=== PATIENT | male | born 1955 | race Caucasian/White ===

== ENCOUNTER → 2021-03-22 | Outpatient (CLI) | payer MEDICARE ==
[2021-03-22 09:32] LABS: ALBUMIN 4.1 g/dL (3.5-5.0); BILIRUBIN,TOTAL 0.4 mg/dL (0.2-1.0); CREATININE 0.9 mg/dL (0.5-1.5); POTASSIUM 4.5 mmol/L (3.5-5.1); TOTAL PROTEIN, SERUM 7.8 g/dL (6.0-8.3)
== END | disposition home or self-care (01) ==
LOC: LAB 08:38
PROVIDERS: ATTEND Internal Medicine Critical Care Medicine
DX: I26.99 Other pulmonary embolism without acute cor pulmonale (principal)
CPT/HCPCS: 36415; 80053

== ENCOUNTER → 2021-03-23 | Outpatient (CLI) | payer MEDICARE ==
[~2021-03-23] MED LIST: IOHEXOL 350 MG/ML 100ML INFUS..BTL IV ONE
== END | disposition home or self-care (01) ==
LOC: RAH 08:24 → EDUNIT# 09:00
PROVIDERS: ATTEND Internal Medicine Critical Care Medicine
DX: I08.1 Rheumatic disorders of both mitral and tricuspid valves (principal); R06.09 Other forms of dyspnea; E11.9 Type 2 diabetes mellitus without complications; E78.5 Hyperlipidemia, unspecified
CPT/HCPCS: 71275; 93306; Q9967

== ENCOUNTER 2021-04-10 05:56 | Day surgery (SDC) | payer MEDICARE ==
[2021-04-06 14:50] VITALS: BP 123/56
[2021-04-06 15:05] LABS: BASOPHILS % (AUTO) 0.8 % (0.0-5.0); EOSINOPHILS % (AUTO) 2.2 % (0.0-8.0); LYMPHOCYTES % (AUTO) 36.5 % (21.0-51.0); MEAN CORPUSCULAR HEMOGLOBIN 29.8 pg (27.0-33.0); MEAN CORPUSCULAR HGB CONC 34.4 g/dL (32.0-36.0); MEAN CORPUSCULAR VOLUME 86.7 fL (79-99); NEUTROPHILS % (AUTO) 51.3 % (40.0-77.0); PLATELET COUNT (AUTO) 275 K/uL (130-400); RED BLOOD CELL COUNT(AUTO) 4.73 MIL/uL (4.50-6.20); RED CELL DISTRIBUTION WIDTH 12.7 % (11.0-15.5); WHITE BLOOD COUNT (AUTO) 9.3 K/uL (4.8-10.8)
[2021-04-06 15:21] LABS: POTASSIUM 4.4 mmol/L (3.5-5.1)
[2021-04-06 15:25] LABS: INR 1.02 (0.85-1.15); PROTHROMBIN TIME 11.1 SEC (9.6-11.6)
[2021-04-06 15:26] LABS: APPEARANCE,URINE Clear (CLEAR); BILIRUBIN,URINE Negative (NEGATIVE); COLOR,URINE Yellow (YELLOW); GLUCOSE, URINE (UA) 250 mg/dL (NEGATIVE); KETONES,URINE Negative (NEGATIVE); LEUKOCYTE ESTERASE ,URINE Negative (NEGATIVE); NITRATE,URINE Negative (NEGATIVE); OCCULT BLOOD,URINE Negative (NEGATIVE); PROTEIN,URINE Negative (NEGATIVE)
[2021-04-06 16:05] LABS: BACTERIA,URINE None Seen /HPF (None Seen); RBC,URINE None Seen /HPF (0-1); SQUAMOUS EPITHELIAL CELL,UR None Seen /HPF (0-2); WBC,URINE 0-1 /HPF (0-1)
[2021-04-10] VITALS (8 sets, daily range): BP systolic 105–129; BP diastolic 62–93
[~2021-04-10] VITALS: Ht 190.5 cm; Wt 107.0 kg
[~2021-04-10 05:56] MED LIST changes: +ASPI-1012 PO; +ESOM40CA PO; -IOHEXOL 350 MG/ML 100ML INFUS..BTL IV ONE; +ISOS30TA92 PO; +METF-526 PO; +METO-408 PO; +ROSU10TA28 PO; +TAMS-1 PO; +UBID100C10 PO
[2021-04-10] MEDS ORDERED: 0.9%NACL 1000ML 1,000 ML IV ONE (06:17)
[2021-04-10] MEDS ORDERED: LIDOCAINE HCL 400MG/20ML VIAL ONE (07:13)
[2021-04-10] MEDS ORDERED: IOHEXOL 350 MG/ML 100ML INFUS..BTL IV ONE (07:13)
[2021-04-10] MEDS ORDERED: IOHEXOL-350 50ML VIAL IV ONE (07:13)
[2021-04-10] MEDS ORDERED: NITROGLYCERIN 50MG VIAL ONE (07:13)
[2021-04-10] MEDS ORDERED: HEPARIN 10,000 UNIT/10ML (1,000 UNIT/ML) VIAL ONE (07:58)
[2021-04-10] MEDS ORDERED: NICARDIPINE 25MG INJ IV ONE (07:58)
[2021-04-10] MEDS ORDERED: FENTANYL CITRATE PF 50 MCG/1 ML 2ML VIAL ONE (08:00)
[2021-04-10] MEDS ORDERED: 0.9%NACL 1000ML 1,000 ML IV SCH (08:00)
[2021-04-10] MEDS ORDERED: MIDAZOLAM HCL 1 MG/ML 2ML VIAL ONE (08:00)
[2021-04-10 12:08] LABS: HEMATOCRIT 41.8 % (42-54); MEAN CORPUSCULAR HEMOGLOBIN 29.5 pg (27.0-33.0); MEAN CORPUSCULAR VOLUME 86.9 fL (79-99); RED BLOOD CELL COUNT(AUTO) 4.81 MIL/uL (4.50-6.20); RED CELL DISTRIBUTION WIDTH 12.9 % (11.0-15.5); WHITE BLOOD COUNT (AUTO) 8.2 K/uL (4.8-10.8)
[2021-04-10 12:13] LABS: INR 1.11 (0.85-1.15)
[2021-04-10 12:15] LABS: PARTIAL THROMBOPLASTIN TIME 27.5 SEC (26.3-35.5)
[2021-04-10 12:21] LABS: ALBUMIN 3.4 g/dL (3.5-5.0); BILIRUBIN,TOTAL 0.4 mg/dL (0.2-1.0); CREATININE 0.7 mg/dL (0.5-1.5); POTASSIUM 3.5 mmol/L (3.5-5.1); TOTAL PROTEIN, SERUM 6.6 g/dL (6.0-8.3)
== END 2021-04-10 12:03 | disposition home or self-care (01) ==
LOC: DAH 05:56
PROVIDERS: ATTEND Internal Medicine Cardiovascular Disease
DX: I25.118 Atherosclerotic heart disease of native coronary artery with other forms of angina pectoris (principal); I25.82 Chronic total occlusion of coronary artery; I42.9 Cardiomyopathy, unspecified; E78.5 Hyperlipidemia, unspecified; K21.9 Gastro-esophageal reflux disease without esophagitis; E11.9 Type 2 diabetes mellitus without complications; F17.210 Nicotine dependence, cigarettes, uncomplicated; Z83.3 Family history of diabetes mellitus; Z82.49 Family history of ischemic heart disease and other diseases of the circulatory system; Z79.82 Long term (current) use of aspirin; Z79.01 Long term (current) use of anticoagulants; Z79.899 Other long term (current) drug therapy; Z98.890 Other specified postprocedural states; Z86.16 Personal history of COVID-19; Z79.84 Long term (current) use of oral hypoglycemic drugs
CPT/HCPCS: 36415 ×2; 71045; 80048; 80053; 80061; 81001; 83036; 83880; 85025; 85027; 85610 ×2; 85730 ×2; 86850; 86900; 86901; 93005; 93458; 93880; A4215; A4216; A4221; A4222; A4223 ×3; A4606; A4663; C1769; C1894 ×3; J1644 ×2; J2250; J3010; J3490 ×3; J7030 ×2; Q9965; Q9967; 99156; 99157

== ENCOUNTER → 2021-04-13 | Outpatient (CLI) | payer MEDICARE ==
[~2021-04-13] VITALS: Ht 190.5 cm; Wt 106.0 kg
[~2021-04-13] MED LIST changes: +AMINOCAPROIC ACID 5,000MG VIAL 15,000 MG in 0.9% NACL 500ML IV.SOLN 420 ML IV PRN; +EPINEPHRINE PF 1MG AMP 10 MG in 0.9% NACL 250ML 240 ML IV PRN; +NOREPINEPHRINE BITARTRATE 8 MG in DEXTROSE 5%-WATER 250 ML IV PRN
[2021-04-13 09:21] LABS: ABG BASE EXCESS -4.6 mmol/L (-2.0-3.0); ABG HCO3 19.2 mmol/L (21.0-28.0); ABG OXYGEN SATURATION 95.9 % (95.0-99.0); ABG PCO2 32 mmHg (35-48)
[2021-04-13 09:33] VITALS: BP 139/71
== END | disposition home or self-care (01) ==
LOC: EDSTATUS 08:00 → DAH 10:00
PROVIDERS: ATTEND Thoracic Surgery (Cardiothoracic Vascular Surgery)
DX: Z01.812 Encounter for preprocedural laboratory examination (principal); I25.10 Atherosclerotic heart disease of native coronary artery without angina pectoris; Z20.822 Contact with and (suspected) exposure to COVID-19
CPT/HCPCS: 36415; 36600; 82435; 82803; 82947; 83605; 84132; 84295; 85018; 86850; 86900; 86901; 86923; 87635; A6260

== ENCOUNTER 2021-04-14 08:00 | Inpatient (IN) | payer MEDICARE ==
[~2021-04-14] VITALS: Ht 190.5 cm; Wt 105.4 kg
[~2021-04-14 08:00] MED LIST changes: -AMINOCAPROIC ACID 5,000MG VIAL 15,000 MG in 0.9% NACL 500ML IV.SOLN 420 ML IV PRN; -EPINEPHRINE PF 1MG AMP 10 MG in 0.9% NACL 250ML 240 ML IV PRN; -NOREPINEPHRINE BITARTRATE 8 MG in DEXTROSE 5%-WATER 250 ML IV PRN
[2021-04-21 10:26] LABS: BASOPHILS % (AUTO) 0.5 % (0.0-5.0); EOSINOPHILS % (AUTO) 2.6 % (0.0-8.0); HEMATOCRIT 42.6 % (42-54); LYMPHOCYTES % (AUTO) 29.6 % (21.0-51.0); MEAN CORPUSCULAR HEMOGLOBIN 28.9 pg (27.0-33.0); MEAN CORPUSCULAR HGB CONC 33.3 g/dL (32.0-36.0); MEAN CORPUSCULAR VOLUME 86.8 fL (79-99); MONOCYTES % (AUTO) 7.7 % (3.0-13.0); NEUTROPHILS % (AUTO) 59.1 % (40.0-77.0); PLATELET COUNT (AUTO) 273 K/uL (130-400); RED BLOOD CELL COUNT(AUTO) 4.91 MIL/uL (4.50-6.20); RED CELL DISTRIBUTION WIDTH 12.6 % (11.0-15.5); WHITE BLOOD COUNT (AUTO) 9.8 K/uL (4.8-10.8)
[2021-04-21 10:29] LABS: CREATININE 0.9 mg/dL (0.5-1.5); POTASSIUM 4.4 mmol/L (3.5-5.1)
[2021-04-21 10:37] LABS: INR 1.01 (0.85-1.15)
[2021-04-21 10:38] LABS: PARTIAL THROMBOPLASTIN TIME 27.1 SEC (26.3-35.5)
[2021-04-21 16:13] VITALS: BP 140/67
[2021-04-24] VITALS (47 sets, daily range): BP systolic 107–243; BP diastolic 59–130
[2021-04-24] MEDS ORDERED: 0.9%NACL 1000ML 1,000 ML IV ONE (07:02)
[2021-04-24] MEDS: CEFAZOLIN SODIUM 1 GM VIAL ONE ×2 (07:17→11:15)
[2021-04-24] MEDS ORDERED: EPINEPHRINE PF 1MG AMP 10 MG in 0.9% NACL 250ML 240 ML IV PRN ×5 (07:30→14:30)
[2021-04-24] MEDS ORDERED: AMINOCAPROIC ACID 5,000MG VIAL 15,000 MG in 0.9% NACL 500ML IV.SOLN 420 ML IV PRN (07:30)
[2021-04-24] MEDS ORDERED: NOREPINEPHRINE BITARTRATE 8 MG in 0.9% NACL 250ML 250 ML IV PRN ×2 (07:30→14:30)
[2021-04-24] MEDS ORDERED: AMINOCAPROIC ACID 5,000MG VIAL ONE (08:56)
[2021-04-24] MEDS ORDERED: HEPARIN 10,000 UNIT/10ML (1,000 UNIT/ML) VIAL ONE ×2 (08:56→11:56)
[2021-04-24] MEDS ORDERED: LIDOCAINE PF 100MG/5ML (2%) SYRINGE 5ML ONE (08:56)
[2021-04-24] MEDS ORDERED: EPINEPHRINE PF 1MG AMP ONE (08:56)
[2021-04-24] MEDS ORDERED: PROTAMINE SULFATE 10 MG/ML 25ML VIAL IV ONE (08:56)
[2021-04-24] MEDS ORDERED: ESMOLOL HCL 10 MG/ML 10 ML VIAL ONE (08:56)
[2021-04-24] MEDS ORDERED: SODIUM BICARB 50MEQ 50ML VIAL 150 ML ONE (08:56)
[2021-04-24] MEDS ORDERED: NOREPINEPHRINE BITARTRATE 1 MG/1 ML ML IV ONE (08:56)
[2021-04-24] MEDS ORDERED: ROCURONIUM 10MG/1ML SYR 10 MG/ML ML ONE (08:57)
[2021-04-24] MEDS ORDERED: PROPOFOL 10 MG/ML 20ML VIAL IV ONE (08:57)
[2021-04-24] MEDS ORDERED: MIDAZOLAM HCL 1 MG/ML 2ML VIAL ONE (08:57)
[2021-04-24] MEDS ORDERED: FENTANYL CITRATE PF 50 MCG/1 ML 20ML VIAL IJ ONE (08:57)
[2021-04-24] MEDS ORDERED: KETAMINE 50MG/ML SYRINGE 50 MG/ML DISP.SYRIN IV ONE ×2 (09:02→12:51)
[2021-04-24] MEDS ORDERED: NITROGLYCERIN 50MG/D5W 250ML 1 BOT ONE (09:08)
[2021-04-24] MEDS ORDERED: OCTYL 2-CYANOACRYLATE 1 EACH TP ONE (11:52)
[2021-04-24] MEDS ORDERED: PAPAVERINE HCL 30 MG/ML 2ML VIAL ONE (11:52)
[2021-04-24] MEDS ORDERED: CEFAZOLIN SODIUM 1 GM VIAL ONE ×2 (11:52→17:42)
[2021-04-24 12:04] LABS: ABG BASE EXCESS -1.3 mmol/L (-2.0-3.0); ABG HCO3 22.3 mmol/L (21.0-28.0); ABG OXYGEN SATURATION 99.3 % (95.0-99.0); ABG PCO2 34 mmHg (35-48)
[2021-04-24 13:52] LABS: ABG BASE EXCESS -4.7 mmol/L (-2.0-3.0); ABG HCO3 20.1 mmol/L (21.0-28.0); ABG PCO2 36 mmHg (35-48)
[2021-04-24] MEDS ORDERED: NOREPINEPHRIN 4MG/NS 250ML 250 ML IV PRN (14:00)
[2021-04-24] MEDS ORDERED: GLUCAGON 1MG KIT 1 MG ML IM PRN (14:00)
[2021-04-24] MEDS ORDERED: 0.9%NACL 1000ML 1,000 ML IV SCH (14:00)
[2021-04-24] MEDS ORDERED: TRAMADOL HCL 50 MG TABLET PO PRN (14:00)
[2021-04-24] MEDS ORDERED: ALBUMIN (HUMAN) 5% 250 ML IV PRN (14:00)
[2021-04-24] MEDS ORDERED: POTASSIUM PHOS 15 mMOL+NS250ML 250 ML IV PRN (14:00)
[2021-04-24] MEDS ORDERED: MORPHINE 2 MG SYG IV PRN (14:00)
[2021-04-24] MEDS ORDERED: ONDANSETRON 4MG INJ IV PRN (14:00)
[2021-04-24] MEDS ORDERED: 0.9% NACL 500ML IV.SOLN 500 ML IV SCH (14:00)
[2021-04-24] MEDS ORDERED: ACETAMINOPHEN 650 MG SUPPOSITORY RC PRN (14:00)
[2021-04-24] MEDS ORDERED: PROPOFOL 1000 MG/100 ML 100 ML IV PRN (14:00)
[2021-04-24] MEDS ORDERED: 0.9%NACL 10ML VIAL IVP PRN (14:00)
[2021-04-24] MEDS ORDERED: AMINOCAPROIC ACID 5,000MG VIAL 15,000 MG in 0.9% NACL 250ML 250 ML IV SCH (14:00)
[2021-04-24] MEDS ORDERED: ACETAMINOPHEN 325 MG TAB PO PRN (14:00)
[2021-04-24] MEDS ORDERED: INSULIN REGULAR, HUMAN 3ML 100 UNIT in 0.9%NACL 100ML 99 ML IV SCH ×2 (14:00)
[2021-04-24] MEDS ORDERED: EPINEPHRINE PF 1MG AMP 10 MG in DEXTROSE 5%-WATER 250 ML IV PRN (14:00)
[2021-04-24] MEDS ORDERED: MAGNESIUM 2GM PREMIX 50ML 50 ML IV PRN (14:00)
[2021-04-24] MEDS ORDERED: DEXTROSE 50%-WATER 50 ML DISP.SYRIN IV PRN (14:00)
[2021-04-24 15:00] LABS: ABG BASE EXCESS -6.8 mmol/L (-2.0-3.0); ABG HCO3 19.3 mmol/L (21.0-28.0); ABG OXYGEN SATURATION 95.6 % (95.0-99.0); ABG PCO2 40 mmHg (35-48)
[2021-04-24 15:11] LABS: HEMATOCRIT 40.5 % (42-54); MEAN CORPUSCULAR HEMOGLOBIN 29.1 pg (27.0-33.0); MEAN CORPUSCULAR HGB CONC 33.3 g/dL (32.0-36.0); MEAN CORPUSCULAR VOLUME 87.3 fL (79-99); RED BLOOD CELL COUNT(AUTO) 4.64 MIL/uL (4.50-6.20); RED CELL DISTRIBUTION WIDTH 12.7 % (11.0-15.5); WHITE BLOOD COUNT (AUTO) 29.3 K/uL (4.8-10.8)
[2021-04-24] MEDS: SODIUM BICARB 50MEQ 50ML VIAL IV PRN ×3 (15:13→20:32)
[2021-04-24] MEDS: MORPHINE 2 MG SYG IV PRN ×2 (15:13→16:17)
[2021-04-24 15:20] LABS: INR 1.12 (0.85-1.15); MAGNESIUM 1.5 mg/dL (1.80-2.40); PHOSPHORUS 4.5 mg/dL (2.5-4.9); POTASSIUM 3.4 mmol/L (3.5-5.1); PROTHROMBIN TIME 12.1 SEC (9.6-11.6)
[2021-04-24 15:21] LABS: PARTIAL THROMBOPLASTIN TIME 24.7 SEC (26.3-35.5)
[2021-04-24] MEDS: POTASSIUM CHLORIDE 20MEQ/100ML 100 ML IV PRN ×2 (15:53→16:46)
[2021-04-24] MEDS ORDERED: ASPIRIN 81MG CHEW TAB NG ONE (16:00)
[2021-04-24 16:11] LABS: ABG BASE EXCESS -3.6 mmol/L (-2.0-3.0); ABG HCO3 20.6 mmol/L (21.0-28.0); ABG OXYGEN SATURATION 97.1 % (95.0-99.0); ABG PCO2 35 mmHg (35-48)
[2021-04-24 17:14] LABS: ABG BASE EXCESS 0.6 mmol/L (-2.0-3.0); ABG HCO3 26.3 mmol/L (21.0-28.0); ABG OXYGEN SATURATION 95.8 % (95.0-99.0); ABG PCO2 46 mmHg (35-48)
[2021-04-24] MEDS: CALCIUM GLUC 1GM 1 GM in 0.9%NACL 50ML 50 ML IV PRN ×2 (17:23→18:45)
[2021-04-24] MEDS ORDERED: ASPIRIN 81MG CHEW TAB ONE (17:42)
[2021-04-24] MEDS: CEFAZOLIN SODIUM 1 GM VIAL IV SCH (17:44)
[2021-04-24] MEDS ORDERED: PANTOPRAZOLE 40 MG/VIAL IVP ONE (18:30)
[2021-04-24 18:47] LABS: MAGNESIUM 2.2 mg/dL (1.80-2.40); POTASSIUM 3.7 mmol/L (3.5-5.1)
[2021-04-24] MEDS: TRAMADOL HCL 50 MG TABLET PO PRN (19:29)
[2021-04-24 19:34] LABS: CHOLESTEROL 132 mg/dL (<200); HDL CHOLESTEROL 37 mg/dL (29-71); LDL DIRECT 78 mg/dL (0-99); TRIGLYCERIDES 105 mg/dL (30-200)
[2021-04-24] MEDS ORDERED: KETOROLAC 30MG VIAL (30MG/ML) ONE (19:55)
[2021-04-24 20:19] LABS: ABG HCO3 24.5 mmol/L (21.0-28.0); ABG OXYGEN SATURATION 95.7 % (95.0-99.0); ABG PCO2 44 mmHg (35-48)
[2021-04-24] MEDS ORDERED: KETOROLAC 30MG VIAL (30MG/ML) IV ONE (20:30)
[2021-04-24] MEDS: FAMOTIDINE 20MG VIAL IV SCH (20:32)
[2021-04-24] MEDS: Rosuvastatin Calcium 10 MG PO SCH (21:00)
[2021-04-24] MEDS ORDERED: FAMOTIDINE 20MG VIAL IV SCH (21:00)
[2021-04-24] MEDS: IPRATROPIUM 0.5 MG/2.5 ML INH IH SCH (23:34)
[2021-04-25] VITALS (27 sets, daily range): BP systolic 95–149; BP diastolic 43–81
[2021-04-25] MEDS: TRAMADOL HCL 50 MG TABLET PO PRN (02:04)
[2021-04-25] MEDS: CEFAZOLIN SODIUM 1 GM VIAL IV SCH ×2 (02:55→10:09)
[2021-04-25 04:35] LABS: BASOPHILS % (AUTO) 0.2 % (0.0-5.0); HEMATOCRIT 40.3 % (42-54); LYMPHOCYTES % (AUTO) 5.7 % (21.0-51.0); MEAN CORPUSCULAR HEMOGLOBIN 29.9 pg (27.0-33.0); MEAN CORPUSCULAR HGB CONC 34.2 g/dL (32.0-36.0); MEAN CORPUSCULAR VOLUME 87.4 fL (79-99); MONOCYTES % (AUTO) 9.6 % (3.0-13.0); NEUTROPHILS % (AUTO) 83.9 % (40.0-77.0); PLATELET COUNT (AUTO) 269 K/uL (130-400); RED BLOOD CELL COUNT(AUTO) 4.61 MIL/uL (4.50-6.20); WHITE BLOOD COUNT (AUTO) 19.9 K/uL (4.8-10.8)
[2021-04-25 04:50] LABS: INR 1.07 (0.85-1.15); PROTHROMBIN TIME 11.6 SEC (9.6-11.6)
[2021-04-25 04:52] LABS: CREATININE 0.8 mg/dL (0.5-1.5); MAGNESIUM 1.8 mg/dL (1.80-2.40); PARTIAL THROMBOPLASTIN TIME 26.5 SEC (26.3-35.5); PHOSPHORUS 4.2 mg/dL (2.5-4.9); POTASSIUM 3.9 mmol/L (3.5-5.1)
[2021-04-25] MEDS ORDERED: HYDROCODONE/ACETAMINOPHEN 5/325 MG TAB PO PRN ×2 (05:30→09:30)
[2021-04-25] MEDS ORDERED: MORPHINE 2 MG SYG IVP ONE (05:30)
[2021-04-25] MEDS: IPRATROPIUM 0.5 MG/2.5 ML INH IH SCH ×3 (06:40→20:39)
[2021-04-25 07:08] LABS: ABG BASE EXCESS -0.1 mmol/L (-2.0-3.0); ABG HCO3 23.5 mmol/L (21.0-28.0); ABG OXYGEN SATURATION 95.1 % (95.0-99.0); ABG PCO2 35 mmHg (35-48)
[2021-04-25] MEDS: FUROSEMIDE 20MG VIAL IV SCH ×2 (08:15→20:45)
[2021-04-25] MEDS: TAMSULOSIN HCL 0.4 MG CAP.ER.24H PO SCH (08:15)
[2021-04-25] MEDS: ASPIRIN 81 MG EC TAB PO SCH (08:15)
[2021-04-25] MEDS: FAMOTIDINE 20MG VIAL IV SCH ×2 (08:15→20:43)
[2021-04-25] MEDS ORDERED: PANTOPRAZOLE 40 MG TAB DR PO SCH (09:00)
[2021-04-25] MEDS ORDERED: ASCORBIC ACID 500 MG TAB PO SCH (09:00)
[2021-04-25] MEDS: HYDROCODONE/ACETAMINOPHEN 7.5/325 MG TAB PO PRN ×2 (16:57→23:25)
[2021-04-25] MEDS: Rosuvastatin Calcium 10 MG PO SCH (20:43)
[2021-04-26] VITALS (18 sets, daily range): BP systolic 95–168; BP diastolic 53–87
[2021-04-26] MEDS: IPRATROPIUM 0.5 MG/2.5 ML INH IH SCH ×4 (00:59→19:12)
[2021-04-26 04:46] LABS: HEMATOCRIT 38.2 % (42-54); MEAN CORPUSCULAR HEMOGLOBIN 28.7 pg (27.0-33.0); MEAN CORPUSCULAR HGB CONC 32.5 g/dL (32.0-36.0); MEAN CORPUSCULAR VOLUME 88.4 fL (79-99); RED BLOOD CELL COUNT(AUTO) 4.32 MIL/uL (4.50-6.20); RED CELL DISTRIBUTION WIDTH 13.2 % (11.0-15.5); WHITE BLOOD COUNT (AUTO) 17.8 K/uL (4.8-10.8)
[2021-04-26 04:54] LABS: CREATININE 0.8 mg/dL (0.5-1.5); POTASSIUM 3.4 mmol/L (3.5-5.1)
[2021-04-26] MEDS: POTASSIUM CHLORIDE 20MEQ/100ML 100 ML IV PRN (05:05)
[2021-04-26] MEDS: HYDROCODONE/ACETAMINOPHEN 7.5/325 MG TAB PO PRN (05:14)
[2021-04-26] MEDS ORDERED: POTASSIUM CHLORIDE 10% ELIXIR 20 MEQ/15 ML UDCUP PO PRN (07:30)
[2021-04-26] MEDS: TAMSULOSIN HCL 0.4 MG CAP.ER.24H PO SCH (08:16)
[2021-04-26] MEDS: ASPIRIN 81 MG EC TAB PO SCH (08:17)
[2021-04-26] MEDS: FUROSEMIDE 20 MG TABLET PO SCH ×2 (08:17→16:17)
[2021-04-26] MEDS: ASCORBIC ACID 500 MG TAB PO SCH (08:17)
[2021-04-26] MEDS: KCL 20 MEQ ERTAB PO PRN ×2 (08:18→10:02)
[2021-04-26] MEDS: FAMOTIDINE 20MG VIAL IV SCH (08:19)
[2021-04-26] MEDS ORDERED: METOPROLOL TARTRATE 25 MG TAB ONE (09:09)
[2021-04-26] MEDS ORDERED: METOPROLOL TARTRATE 25 MG TAB PO SCH ×2 (09:30→21:00)
[2021-04-26] MEDS ORDERED: GLUCAGON 1MG KIT 1 MG ML IM PRN (10:30)
[2021-04-26] MEDS ORDERED: DEXTROSE 50%-WATER 50 ML DISP.SYRIN IV PRN (10:30)
[2021-04-26] MEDS: TRAMADOL HCL 50 MG TABLET PO PRN ×2 (11:58→15:30)
[2021-04-26] MEDS: INSULIN HUMULIN R 100 UNIT/ML 3ML SQ SCH ×3 (12:23→20:46)
[2021-04-26] MEDS ORDERED: FAMOTIDINE 20MG TAB ONE (20:02)
[2021-04-26] MEDS: FAMOTIDINE 20MG TAB PO SCH (20:45)
[2021-04-26] MEDS: METOPROLOL TARTRATE 25 MG TAB PO SCH (20:45)
[2021-04-26] MEDS: Rosuvastatin Calcium 10 MG PO SCH (20:47)
[2021-04-26] MEDS ORDERED: ATORVASTATIN 40 MG TABLET PO SCH (21:00)
[2021-04-27] MEDS: IPRATROPIUM 0.5 MG/2.5 ML INH IH SCH ×5 (00:36→23:13)
[2021-04-27] MEDS: TRAMADOL HCL 50 MG TABLET PO PRN ×4 (02:19→19:16)
[2021-04-27 03:00] VITALS: BP 108/67
[2021-04-27 03:50] LABS: MEAN CORPUSCULAR HEMOGLOBIN 28.9 pg (27.0-33.0); MEAN CORPUSCULAR HGB CONC 33.2 g/dL (32.0-36.0); MEAN CORPUSCULAR VOLUME 87.1 fL (79-99); RED BLOOD CELL COUNT(AUTO) 4.25 MIL/uL (4.50-6.20); RED CELL DISTRIBUTION WIDTH 13.1 % (11.0-15.5); WHITE BLOOD COUNT (AUTO) 16.1 K/uL (4.8-10.8)
[2021-04-27 03:59] LABS: CREATININE 0.9 mg/dL (0.5-1.5); POTASSIUM 3.7 mmol/L (3.5-5.1)
[2021-04-27] MEDS: INSULIN HUMULIN R 100 UNIT/ML 3ML SQ SCH ×4 (05:58→21:00)
[2021-04-27] MEDS: ASPIRIN 81 MG EC TAB PO SCH (07:07)
[2021-04-27] MEDS: FAMOTIDINE 20MG TAB PO SCH ×2 (07:07→21:00)
[2021-04-27] MEDS: METOPROLOL TARTRATE 25 MG TAB PO SCH ×2 (07:07→21:00)
[2021-04-27] MEDS: FUROSEMIDE 20 MG TABLET PO SCH ×2 (07:07→16:57)
[2021-04-27] MEDS: ASCORBIC ACID 500 MG TAB PO SCH (07:07)
[2021-04-27] MEDS: ENOXAPARIN SODIUM 30 MG/0.3 ML SQ SCH (07:08)
[2021-04-27] MEDS: TAMSULOSIN HCL 0.4 MG CAP.ER.24H PO SCH (07:08)
[2021-04-27 08:00] VITALS: BP 124/74
[2021-04-27 12:21] VITALS: BP 124/65
[2021-04-27 16:30] VITALS: BP 94/67
[2021-04-27] MEDS ORDERED: ACETAMINOPHEN 325 MG TAB PO PRN (17:30)
[2021-04-27 19:00] VITALS: BP 148/73
[2021-04-27] MEDS: Rosuvastatin Calcium 10 MG PO SCH (21:00)
[2021-04-27 23:30] VITALS: BP 107/68
[2021-04-28] MEDS: TRAMADOL HCL 50 MG TABLET PO PRN ×2 (01:51→13:02)
[2021-04-28 04:06] LABS: HEMATOCRIT 37.4 % (42-54); MEAN CORPUSCULAR HEMOGLOBIN 28.8 pg (27.0-33.0); MEAN CORPUSCULAR HGB CONC 33.2 g/dL (32.0-36.0); MEAN CORPUSCULAR VOLUME 86.8 fL (79-99); RED BLOOD CELL COUNT(AUTO) 4.31 MIL/uL (4.50-6.20); RED CELL DISTRIBUTION WIDTH 12.7 % (11.0-15.5); WHITE BLOOD COUNT (AUTO) 12.6 K/uL (4.8-10.8)
[2021-04-28 04:14] LABS: CREATININE 0.8 mg/dL (0.5-1.5); POTASSIUM 3.6 mmol/L (3.5-5.1)
[2021-04-28 05:34] VITALS: BP_SYST 136; BP_SYST 156; BP_DIAS 71
[2021-04-28] MEDS: INSULIN HUMULIN R 100 UNIT/ML 3ML SQ SCH ×3 (06:14→15:36)
[2021-04-28] MEDS: IPRATROPIUM 0.5 MG/2.5 ML INH IH SCH ×2 (06:47→11:29)
[2021-04-28 08:09] VITALS: BP 137/79
[2021-04-28] MEDS: ASPIRIN 81 MG EC TAB PO SCH (09:43)
[2021-04-28] MEDS: FAMOTIDINE 20MG TAB PO SCH (09:43)
[2021-04-28] MEDS: ENOXAPARIN SODIUM 30 MG/0.3 ML SQ SCH (09:43)
[2021-04-28] MEDS: ASCORBIC ACID 500 MG TAB PO SCH (09:43)
[2021-04-28] MEDS: TAMSULOSIN HCL 0.4 MG CAP.ER.24H PO SCH (09:44)
[2021-04-28] MEDS: FUROSEMIDE 20 MG TABLET PO SCH ×2 (09:44→16:15)
[2021-04-28] MEDS: METOPROLOL TARTRATE 25 MG TAB PO SCH (09:44)
[2021-04-28 11:56] VITALS: BP 128/73
[2021-04-28 16:02] VITALS: BP 136/78
[2021-04-28] MEDS ORDERED: METO25 PO (18:55)
[2021-04-28] MEDS ORDERED: FURO20TA6 PO (18:55)
[2021-04-28] MEDS ORDERED: AEC81 PO (18:55)
== END 2021-04-28 19:50 | disposition home or self-care (01) | DRG 235 ==
LOC: EDSTATUS 04-21 08:00 → DAHIP 04-24 06:28 → 2CH 04-24 14:36 → 2AH 04-27 06:35
PROVIDERS: ADMIT Thoracic Surgery (Cardiothoracic Vascular Surgery); ATTEND Thoracic Surgery (Cardiothoracic Vascular Surgery)
PROC: 021209W Bypass Coronary Artery, Three Arteries from Aorta with Autologous Venous Tissue, Open Approach (ICD-10-PCS; principal; 2021-04-24 08:00)
PROC: 06BQ4ZZ Excision of Left Saphenous Vein, Percutaneous Endoscopic Approach (ICD-10-PCS; 2021-04-24 08:00)
PROC: 02100Z9 Bypass Coronary Artery, One Artery from Left Internal Mammary, Open Approach (ICD-10-PCS; 2021-04-24 08:00)
DX: I25.10 Atherosclerotic heart disease of native coronary artery without angina pectoris (principal); I50.43 Acute on chronic combined systolic (congestive) and diastolic (congestive) heart failure; E11.9 Type 2 diabetes mellitus without complications; E66.9 Obesity, unspecified; E78.5 Hyperlipidemia, unspecified; F17.200 Nicotine dependence, unspecified, uncomplicated; J44.9 Chronic obstructive pulmonary disease, unspecified; I11.0 Hypertensive heart disease with heart failure; N40.0 Benign prostatic hyperplasia without lower urinary tract symptoms; E78.00 Pure hypercholesterolemia, unspecified; K21.9 Gastro-esophageal reflux disease without esophagitis; Z20.822 Contact with and (suspected) exposure to COVID-19; Z79.82 Long term (current) use of aspirin; Z79.899 Other long term (current) drug therapy; Z68.29 Body mass index [BMI] 29.0-29.9, adult
CPT/HCPCS: 36415; 71045; 71046; 80048; 80061; 82330; 82435; 82803; 82947; 82948; 83605; 83735; 84100; 84132; 84295; 85018; 85025; 85027; 85610; 85730; 86850; 86900; 86901; 86923; 87635; 93005; 94002; 94150; 94640; 94664; 97039; A7048; G0378; J0171; J0610; J0690; J1644; J1650; J1815; J1885; J1940; J2001; J2250; J2405; J2440; J2704; J2720; J3010; J3475; J3480; J3490; J7030; J7040

== ENCOUNTER 2021-07-26 09:50 | Emergency (ER) | payer MEDICARE ==
[~2021-07-26] VITALS: Ht 190.5 cm; Wt 103.4 kg
[~2021-07-26 09:50] MED LIST changes: +AEC81 PO; -ASPI-1012 PO; +FURO20TA6 PO; -ISOS30TA92 PO; -METO-408 PO; +METO25 PO
[2021-07-26 10:26] LABS: BASOPHILS % (AUTO) 0.4 % (0.0-5.0); EOSINOPHILS % (AUTO) 1.2 % (0.0-8.0); HEMATOCRIT 40.4 % (42-54); LYMPHOCYTES % (AUTO) 17.5 % (21.0-51.0); MEAN CORPUSCULAR HEMOGLOBIN 29.1 pg (27.0-33.0); MEAN CORPUSCULAR HGB CONC 33.9 g/dL (32.0-36.0); MEAN CORPUSCULAR VOLUME 85.8 fL (79-99); MONOCYTES % (AUTO) 10.3 % (3.0-13.0); NEUTROPHILS % (AUTO) 70.2 % (40.0-77.0); PLATELET COUNT (AUTO) 311 K/uL (130-400); RED BLOOD CELL COUNT(AUTO) 4.71 MIL/uL (4.50-6.20); RED CELL DISTRIBUTION WIDTH 12.4 % (11.0-15.5); WHITE BLOOD COUNT (AUTO) 13.5 K/uL (4.8-10.8)
[2021-07-26 10:29] LABS: APPEARANCE,URINE TURBID (CLEAR); BILIRUBIN,URINE SMALL (NEGATIVE); COLOR,URINE RED (YELLOW); GLUCOSE, URINE (UA) NEGATIVE (NEGATIVE); KETONES,URINE NEGATIVE (NEGATIVE); LEUKOCYTE ESTERASE ,URINE TRACE (NEGATIVE); NITRATE,URINE NEGATIVE (NEGATIVE); OCCULT BLOOD,URINE LARGE (NEGATIVE); PROTEIN,URINE 30 mg/dL (NEGATIVE)
[2021-07-26 10:34] LABS: POTASSIUM 4.2 mmol/L (3.5-5.1)
[2021-07-26 10:38] LABS: ALBUMIN 3.5 g/dL (3.5-5.0); BILIRUBIN,TOTAL 0.4 mg/dL (0.2-1.0)
[2021-07-26 10:46] LABS: RBC,URINE TNTC /HPF (0-1)
[2021-07-26 10:47] LABS: BACTERIA,URINE Rare /HPF (None Seen); SQUAMOUS EPITHELIAL CELL,UR Rare /HPF (0-2)
[2021-07-26] MEDS ORDERED: 0.9%NACL 50ML 50 ML IV ONE (11:20)
[2021-07-26] MEDS ORDERED: CEFTRIAXONE 1G VIAL IVP ONE (11:30)
[2021-07-26] MEDS ORDERED: IOHEXOL-350 75 ML VIAL IV ONE (11:30)
[2021-07-26] MEDS ORDERED: CEPH500B PO (12:41)
[2021-07-26 12:42] VITALS: BP 127/74
== END 2021-07-26 13:19 | disposition home or self-care (01) ==
LOC: EDH 09:50
DX: N30.91 Cystitis, unspecified with hematuria (principal); N40.1 Benign prostatic hyperplasia with lower urinary tract symptoms; I25.10 Atherosclerotic heart disease of native coronary artery without angina pectoris; E11.9 Type 2 diabetes mellitus without complications; E78.00 Pure hypercholesterolemia, unspecified; Z79.899 Other long term (current) drug therapy; Z79.82 Long term (current) use of aspirin; Z79.84 Long term (current) use of oral hypoglycemic drugs; Z98.890 Other specified postprocedural states
CPT/HCPCS: 36415; 74177; 80053; 81001; 85025; 87088; 96374; 99285; J0696; Q9967

== ENCOUNTER → 2021-08-02 | Outpatient (CLI) | payer MEDICARE ==
[~2021-08-02] MED LIST changes: +CEPH500B PO
== END | disposition home or self-care (01) ==
LOC: OIH 10:28
PROVIDERS: ATTEND Internal Medicine Cardiovascular Disease
DX: I51.9 Heart disease, unspecified (principal); I25.10 Atherosclerotic heart disease of native coronary artery without angina pectoris
CPT/HCPCS: 93306

== ENCOUNTER → 2022-05-02 | Outpatient (CLI) | payer MEDICARE | END | disposition home or self-care (01) | LOC: SHCH 08:24 | PROVIDERS: ATTEND Internal Medicine Cardiovascular Disease | DX: I73.9 Peripheral vascular disease, unspecified (principal) | CPT/HCPCS: 93925 ==

== ENCOUNTER 2022-11-26 10:57 | Emergency (ER) | payer MEDICARE ==
[~2022-11-26] VITALS: Ht 190.5 cm; Wt 108.0 kg
[2022-11-26] MEDS: IBUPROFEN 600 MG TABLET PO ONE (12:41)
[2022-11-26 12:43] VITALS: BP 120/71; PULSE 62; RESP 16; O2SAT 100
== END 2022-11-26 12:54 | disposition home or self-care (01) ==
LOC: EDH 10:57
DX: S90.122A Contusion of left lesser toe(s) without damage to nail, initial encounter (principal); E11.9 Type 2 diabetes mellitus without complications; I25.10 Atherosclerotic heart disease of native coronary artery without angina pectoris; E78.00 Pure hypercholesterolemia, unspecified; F17.200 Nicotine dependence, unspecified, uncomplicated; Z79.82 Long term (current) use of aspirin; Z87.440 Personal history of urinary (tract) infections; Z95.1 Presence of aortocoronary bypass graft; X58.XXXA Exposure to other specified factors, initial encounter; Y93.89 Activity, other specified; Y92.89 Other specified places as the place of occurrence of the external cause; Y99.8 Other external cause status
CPT/HCPCS: 73660

== ENCOUNTER → 2023-06-03 | Outpatient (CLI) | payer MEDICARE ==
[~2023-06-03] MED LIST changes: +ACET-2079 PO; +AMOX1TAB16 PO
== END ==
LOC: SHCH 07:57
PROVIDERS: ATTEND Internal Medicine Cardiovascular Disease
DX: I51.9 Heart disease, unspecified (principal)
CPT/HCPCS: 93306

== ENCOUNTER 2023-11-13 08:09 | Emergency (ER) | payer MEDICARE ==
[~2023-11-13] VITALS: Ht 188 cm; Wt 112.5 kg
[~2023-11-13 08:09] MED LIST changes: -ROSU10TA28 PO; +ROSU10TA72 PO
[2023-11-13 09:11] VITALS: BP 158/73; PULSE 68; RESP 16; TEMP 97.3; O2SAT 97
[2023-11-13] MEDS ORDERED: DOXY-252 PO (10:38)
[2023-11-13] MEDS: ceFAZolin SODIUM 1 GM VIAL IVPB SCH (10:38)
[2023-11-13] MEDS: HydroCORTISONE 1% CREAM 28G TP ONE (11:24)
[2023-11-13] MEDS ORDERED: HydroCORTISONE 1% CREAM 28G TP SCH (11:30)
== END 2023-11-13 11:37 | disposition home or self-care (01) ==
LOC: EDH 08:09
DX: A26.0 Cutaneous erysipeloid (principal); E11.9 Type 2 diabetes mellitus without complications; I25.10 Atherosclerotic heart disease of native coronary artery without angina pectoris; I10 Essential (primary) hypertension; Z95.1 Presence of aortocoronary bypass graft; Z79.2 Long term (current) use of antibiotics; Z79.84 Long term (current) use of oral hypoglycemic drugs
CPT/HCPCS: 96365; J0690

== ENCOUNTER 2024-03-18 10:21 | Day surgery (SDC) | payer MEDICARE ==
[2024-03-12 10:16] VITALS: BP 154/80; PULSE 72; RESP 16; TEMP 97.9
[2024-03-12 10:20] LABS: BASOPHILS # (AUTO) 0.08 K/uL (0.00-0.20); BASOPHILS % (AUTO) 1.2 % (0.0-5.0); EOSINOPHILS # (AUTO) 0.38 K/uL (0.00-0.70); EOSINOPHILS % (AUTO) 5.6 % (0.0-8.0); HEMATOCRIT 41.2 % (42-54); IMMATURE GRANULOCYTE ABSOLUTE 0.02 K/uL (0-1); LYMPHOCYTES # (AUTO) 2.1 K/uL (1.0-4.8); LYMPHOCYTES % (AUTO) 30.5 % (21.0-51.0); MEAN CORPUSCULAR HEMOGLOBIN 29.6 pg (27.0-33.0); MEAN CORPUSCULAR HGB CONC 32.8 g/dL (32.0-36.0); MEAN CORPUSCULAR VOLUME 90.4 fL (79-99); MONOCYTES # (AUTO) 0.7 K/uL (0.1-1.0); MONOCYTES % (AUTO) 10.2 % (3.0-13.0); NEUTROPHILS # (AUTO) 3.6 K/uL (1.8-7.7); NEUTROPHILS % (AUTO) 52.2 % (40.0-77.0); PLATELET COUNT (AUTO) 222 K/uL (130-400); RED BLOOD CELL COUNT(AUTO) 4.56 MIL/uL (4.50-6.20); WHITE BLOOD COUNT (AUTO) 6.8 K/uL (4.8-10.8)
[2024-03-12 10:31] LABS: CREATININE 0.9 mg/dL (0.5-1.3); POTASSIUM 4.2 mmol/L (3.5-5.1)
[2024-03-12 10:36] LABS: INR 0.98 (0.85-1.15)
[2024-03-12 10:37] LABS: PARTIAL THROMBOPLASTIN TIME 25.7 SEC (26.3-35.5)
[2024-03-13 12:05] VITALS: BP 152/73; PULSE 73; RESP 16; TEMP 98.1
--- NOTE | 2024-03-13 16:50 | NUR ---
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
[~2024-03-18] VITALS: Ht 190.5 cm; Wt 105.5 kg
[~2024-03-18 10:21] MED LIST changes: -AMOX1TAB16 PO; +ATOR20TA65 PO; -CEPH500B PO; +CHOL200013 PO; +CILO100T3 PO; +CRANBERRY PO; +CYAN100022 SL; +ESOM20CA31 PO; -ESOM40CA PO; +FERR-82 PO; +FOLI1 PO; -FURO20TA6 PO; +GLIP10TA16 PO; +MELO-108 PO; +OMEGA XL PO; -ROSU10TA72 PO; -UBID100C10 PO; +UBID200C18 PO
[2024-03-18 10:38] VITALS: BP 149/81; PULSE 69; RESP 14; TEMP 98.1
[2024-03-18] MEDS ORDERED: 0.9%NACL 1000ML 1,000 ML IV SCH (11:00)
[2024-03-18] MEDS ORDERED: IOHEXOL-350 50ML VIAL IV ONE (12:32)
--- NOTE | 2024-03-18 13:05 | HMCIMG ---
CT ABDOMEN W/O CONTRAST HISTORY: Abscessogram COMPARISON: None TECHNIQUE: Multiple sequential axial images of the abdomen were obtained from the dome of the diaphragm through iliac crests. Patient was not given contrast through intravenous route. Oral contrast was not given. FINDINGS: No pleural effusion is seen bilaterally. There is no evidence of parenchymal disease or pulmonary nodule of the visualized lower lungs. Degenerative changes are seen of the thoracolumbar spine. Liver measured 20 cm. Drainage tube is seen with distal tip in the gallbladder fossa. No CT evidence of fluid collection is seen in the gallbladder fossa. Postcholecystectomy changes are seen. The liver, spleen, adrenal glands and pancreas are unremarkable. There is no evidence of hydronephrosis bilaterally. No evidence of renal stone is seen. Fecal material is seen in the colon. There are normal-sized retroperitoneal and mesenteric lymph nodes. No ascites is seen. Atherosclerotic changes are present. IMPRESSION: 1. Drainage tube with distal tip in the gallbladder fossa. No definite residual fluid collection is seen. CT was performed with one or more following dose reduction techniques: automated exposure control, adjustment of the mA and kv according to patient's size, or use of a iterative reconstruction technique.
[2024-03-18 13:10] VITALS: BP 163/87; PULSE 70; RESP 16; TEMP 97.1
--- NOTE | 2024-03-18 13:15 | NUR ---
RE: ABSCESSOGRAM BY IR CT SCAN OF GALLBLADDER FOSSA DRAIN SITE WITH AND WITHOUT 2ML OMNIPAQUE INJECTION TAKEN AND IMAGES REVIEWED BY DR Jarred HONG. NO FLUID SEEN IN GALLBLADDER FOSSA AND DRAINAGE CATHETER REMOVED WITH STERILE TECHNIQUE. DRESSING APPLIED AND DRY AND INTACT. REPORT GIVEN TO ABELARDO DAMON AND PATIENT TRANSPORTED TO DAY PATIENT ROOM 9 VIA STRETCHER.
== END 2024-03-18 13:20 | disposition home or self-care (01) ==
LOC: DAH 10:21
PROVIDERS: ATTEND Internal Medicine Infectious Disease
DX: K81.0 Acute cholecystitis (principal); I25.10 Atherosclerotic heart disease of native coronary artery without angina pectoris; E11.51 Type 2 diabetes mellitus with diabetic peripheral angiopathy without gangrene; E78.5 Hyperlipidemia, unspecified; I73.9 Peripheral vascular disease, unspecified; I10 Essential (primary) hypertension; K21.9 Gastro-esophageal reflux disease without esophagitis; N40.0 Benign prostatic hyperplasia without lower urinary tract symptoms; Z90.49 Acquired absence of other specified parts of digestive tract
CPT/HCPCS: 80048; 85025; 85610; 85730; 36415; 82948 ×2; 74150; A4223 ×4; A4222 ×2; A4663 ×2; A4606 ×2; Q9967; A4215; A4221; A4216

== ENCOUNTER → 2025-02-23 | Outpatient (CLI) | payer MEDICARE ==
[2025-02-23 08:19] LABS: IMMATURE GRANULOCYTE ABSOLUTE 0.04 K/uL (0-1); NUCLEATED RED BLOOD CELLS 0.0 % (0.0-0.19); PLATELET COUNT (AUTO) 312 K/uL (130-400); RED BLOOD CELL COUNT(AUTO) 5.15 MIL/uL (4.50-6.20); RED CELL DISTRIBUTION WIDTH 12.6 % (11.0-15.5); WHITE BLOOD COUNT (AUTO) 10.6 K/uL (4.8-10.8)
[2025-02-23 08:35] LABS: APPEARANCE,URINE CLEAR (CLEAR); GLUCOSE, URINE (UA) 300 mg/dL (NEGATIVE); LEUKOCYTE ESTERASE ,URINE NEGATIVE Leu/uL (NEGATIVE); NITRATE,URINE NEGATIVE (NEGATIVE); OCCULT BLOOD,URINE NEGATIVE (NEGATIVE)
[2025-02-23 08:38] LABS: ADD UA MICROSCOPIC YES
[2025-02-23 08:41] LABS: SQUAMOUS EPITHELIAL CELL,UR RARE /HPF (0-2)
[2025-02-23 08:57] LABS: ASPARTATE AMINOTRANSFERASE 20.0 U/L (10-37); CREATININE 1.1 mg/dL (0.5-1.3); GLOMERULAR FILTR. RATE CALC 73.0 mL/min (>90); GLUCOSE,RANDOM 215.0 mg/dL (70-105); LDL DIRECT 86.0 mg/dL (0-99); SODIUM SERUM 140.0 mmol/L (136-145); TOTAL PROTEIN, SERUM 8.0 g/dL (6.0-8.3); UREA NITROGEN, BLOOD 17.0 mg/dL (7-18)
--- NOTE | 2025-02-24 01:46 | HMCIMG ---
EXAM: CR Chest, 2 View. CLINICAL HISTORY: COMMUNITY-ACQUIRED PNEUMONIA COMPARISON: None provided. FINDINGS: LUNGS: Increased interstitial or peribronchial markings, predominantly in the bilateral lower lobes. The lungs show no infiltrate, consolidation, or mass lesion. PLEURAL SPACES: No evidence of pleural effusion or pneumothorax. MEDIASTINUM: Cardiac size and mediastinal contours are within normal limits. BONES: No acute osseous abnormality. Post median sternotomy status with multiple intact sternal wires in place. Multilevel degenerative changes in the visualized spine. IMPRESSION: 1. Increased peribronchial markings, which may represent bronchitis. 2. No focal air-space consolidation identified to suggest acute lobar pneumonia. 3. Status post median sternotomy. /[place]
== END | disposition home or self-care (01) ==
LOC: LAB 07:25
PROVIDERS: ATTEND Family Medicine
DX: Z12.5 Encounter for screening for malignant neoplasm of prostate (principal); J18.9 Pneumonia, unspecified organism; E78.5 Hyperlipidemia, unspecified; N39.0 Urinary tract infection, site not specified; E61.2 Magnesium deficiency; E55.9 Vitamin D deficiency, unspecified; D21.9 Benign neoplasm of connective and other soft tissue, unspecified; R73.9 Hyperglycemia, unspecified; M47.814 Spondylosis without myelopathy or radiculopathy, thoracic region; Z98.890 Other specified postprocedural states; Z79.899 Other long term (current) drug therapy
CPT/HCPCS: 36415; 71046; 80053; 80061; 81001; 82306; 82607; 83036; 83735; 84153; 84154; 84443; 85025; 87086